=== PATIENT | male | born 1960 | race Caucasian/White ===

== ENCOUNTER 2021-02-07 06:52 | Inpatient (IN) | payer OTHER ==
[2021-02-07] MEDS ORDERED: Sodium Chloride 0.9% 10 ML Syringe FLUSH PRN (07:04)
[2021-02-07] MEDS ORDERED: Diltiazem 50 MG/10 ML SDV IVPUSH ONE (07:05)
--- NOTE | 2021-02-07 07:09 | EDM.PDOC ---
ED HPI GENERAL MEDICAL PROBLEM - General Chief Complaint: Cardiovascular Problem Stated Complaint: SOB -SENT BY CARDIAC REHAB Time Seen by Provider: 02/07/21 07:00 Source of Information: Reports: Patient History Limitations: Reports: No Limitations - History of Present Illness INITIAL COMMENTS - FREE TEXT/NARRATIVE: The patient presents from cardiac rehab for tachycardia and shortness of breath. He noticed last night he was short of breath. He went to cardiac rehab this morning and they sent him right over. His heart rate was in the 140s. He says this has never happened before. He has no history of A-fib. He recently had a PA and had a stent 3 weeks ago. That was done at [facility] in [place]. He also had an PA a couple years ago with a stent. He denies chest pain now. He has no fever, chills, cough, congestion, runny nose, abdominal pain, nausea or vomiting. He is on medicine for hypertension. Onset: Gradual Duration: Day(s): (last night) Severity: Moderate Improves with: Reports: None Worsens with: Reports: None Associated Symptoms: Reports: Shortness of Breath. Denies: Chest Pain, Cough, Fever/Chills, Headaches, Nausea/Vomiting - Related Data Allergies Allergy/AdvReac Type Severity Reaction Status Date / Time ticagrelor [From Brilinta] Allergy Severe Shortness Verified 02/07/21 07:12 of Breath empagliflozin Allergy Intermediate Hives Verified 02/07/21 10:40 [From Jardiance] amoxicillin [From Augmentin] AdvReac Mild Numbness Verified 02/07/21 10:40 clavulanic acid AdvReac Mild Numbness Verified 02/07/21 10:40 [From Augmentin] [id number] Reductase AdvReac Mild Muscle Verified 02/07/21 10:40 Inhibitor Aches Home Meds: Home Meds Aspirin [Adult Aspirin] 81 mg PO DAILY 05/03/18 [History] Lisinopril 40 mg PO DAILY 05/03/18 [History] Loratadine [Claritin] 10 mg PO DAILY PRN 05/03/18 [History] Multivit-Min/FA/Lycopen/Lutein [Centrum Silver Men Tablet] 1 tab PO DAILY 05/03/18 [History] Zolpidem Tartrate [Ambien] 10 mg PO BEDTIME PRN 05/03/18 [History] amLODIPine Besylate [Amlodipine Besylate] 10 mg PO DAILY 05/03/18 [History] metFORMIN HCl [Metformin HCl] 1,000 mg PO BID 05/03/18 [History] Clopidogrel [Plavix] 75 mg PO DAILY 12/19/18 [History] Dulaglutide [Trulicity] 1 injection SQ WEEKLY 02/07/21 [History] Isosorbide Mononitrate [Imdur] 30 mg PO DAILY 02/07/21 [History] Pravastatin [Pravachol] 40 mg PO BEDTIME 02/07/21 [History] carvediloL [Carvedilol] 3.125 mg PO BID 02/07/21 [History] Past Medical History HEENT History: Reports: Impaired Vision Cardiovascular History: Reports: Hypertension, PA Other Cardiovascular History: stress test reveal precvious PA Respiratory History: Reports: Sleep Apnea Genitourinary History: Reports: Renal Calculus AUDIO VISUAL AIDS DIRECTOR History: Reports: None Musculoskeletal History: Reports: Gout, Osteoarthritis Neurological History: Reports: None Psychiatric History: Reports: None Endocrine/Metabolic History: Reports: Diabetes, Type II Hematologic History: Reports: None Immunologic History: Reports: None Oncologic (Cancer) History: Reports: Prostate Dermatologic History: Reports: None - Past Surgical History HEENT Surgical History: Reports: Other (See Below), Oral Surgery, Tonsillectomy Social & Family History - Family History Family Medical History: No Pertinent Family History - Caffeine Use Caffeine Use: Reports: Soda - Living Situation & Occupation Living situation: Reports: , with Spouse 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 Denies: Cough Cardiovascular: Reports: Palpitations. Denies: Chest Pain Endocrine: Reports: No Symptoms GI/Abdominal: Reports: No Symptoms : Reports: No Symptoms ED EXAM, GENERAL - Physical Exam Exam: See Below Exam Limited By: No Limitations General Appearance: Alert, No Apparent Distress Ears: Normal External Exam Nose: Normal Inspection Head: Atraumatic, Normocephalic Neck: Normal Inspection Respiratory/Chest: No Respiratory Distress, Lungs Clear, Normal Breath Sounds Cardiovascular: No Edema, No Murmur, Tachycardia GI/Abdominal: Soft, Non-Tender, No Organomegaly, No Mass Back Exam: Normal Inspection Extremities: Normal Inspection #1 Interpretation EKG Date: 02/07/21 Time: 07:15 Rhythm: A-Fib Rate (Beats/Min): 135 [place]: Normal P-Wave: Absent QRS: RBBB ST-T: Normal QT: Normal #2 Interpretation EKG Date: 02/07/21 Time: 07:50 Rhythm: A-Fib Rate (Beats/Min): 107 [place]: Normal P-Wave: Absent QRS: RBBB ST-T: Normal QT: Normal Course - Vital Signs Last Recorded V/S: Last Vital Signs Temp 97.1 F 02/07/21 09:55 Pulse 105 H 02/07/21 09:55 Resp 20 02/07/21 09:55 BP 120/80 02/07/21 09:55 Pulse Ox 96 02/07/21 09:55 - Orders/Labs/Meds Orders: Active Orders 24 hr Category Date Time Status Cardiac Monitoring [RC] . DIRECTED Care 02/07/21 07:04 Active EKG Documentation Completion [RC] ASDIRECTED Care 02/07/21 07:47 Active EKG Documentation Completion [RC] STAT Care 02/07/21 07:04 Active Peripheral IV Care [RC] . DIRECTED Care 02/07/21 07:04 Active Diltiazem [Cardizem] 100 mg Med 02/07/21 07:15 Active Sodium Chloride 0.9% [Normal Saline] 100 ml IV TITRATE Sodium Chloride 0.9% [Saline Flush] Med 02/07/21 07:04 Active 10 ml FLUSH ASDIRECTED PRN Peripheral IV Insertion Adult [OM.PC] Stat Oth 02/07/21 07:04 Ordered EKG 12 Lead [EK] Stat Ther 02/07/21 07:47 Ordered Medication Orders Acetaminophen (Acetaminophen 325 Mg Tab) 650 mg PO Q4H PRN PRN Reason: Pain (Mild 1-3)/fever Apixaban (Apixaban 5 Mg Tab) 5 mg PO BID [facility] Aspirin (Aspirin 81 Mg Tab.Ec) 81 mg PO DAILY [facility] Carvedilol (Carvedilol 6.25 Mg Tab) 6.25 mg PO BID [facility] Clopidogrel Bisulfate (Clopidogrel 75 Mg Tab) 75 mg PO DAILY [facility] Diltiazem HCl 100 mg/ Sodium (Chloride) 100 mls @ 10 mls/hr IV TITRATE VEA; Protocol Last Titration: 02/07/21 08:14 Dose: 10 mg/hr, 10 mls/hr Documented by: Titration: 02/07/21 07:40 Dose: 5 mg/hr, 5 mls/hr Documented by: Admin: 02/07/21 07:36 Dose: 10 mg/hr, 10 mls/hr Documented by: SHARON Magnesium Sulfate 2 gm/ Premix 50 mls @ 25 mls/hr IV ONETIME ONE Stop: 02/07/21 12:59 Insulin Human Lispro (Insulin Lispro 100 Unit/Ml) 0 unit SUBCUT QIDACANDBED EVA; Protocol Multivitamins/Minerals/Vitamin C (Multivitamin Tab) 1 tab PO DAILY EVA Dulaglutide [ Trulicity] 0.75 Mg/0 .5 Ml Pen.Injctr Patient's Own Med 0 each SUBCUT Mo@0900 EV[facility] Pravastatin Sodium (Pravastatin 20 Mg Tab) 40 mg PO BEDTIME EVA Sodium Chloride (Sodium Chloride 0.9% 10 Ml Syringe) 10 ml FLUSH ASDIRECTED PRN PRN Reason: Keep Vein Open Last Admin: 02/07/21 07:36 Dose: 10 ml Documented by: SHARON Zolpidem Tartrate (Zolpidem 10 Mg Tab) 10 mg PO BEDTIME PRN PRN Reason: Insomnia Labs: Laboratory Tests 02/07/21 02/07/21 02/07/21 Range/Units 07:20 07:20 07:20 WBC 6.07 (4.23-9.07) K/mm3 RBC 5.16 (4.63-6.08) M/mm3 Hgb 14.8 (13.7-17.5) gm/dl Hct 44.2 (40.1-51.0) % MCV 85.7 (79.0-92.2) fl MCH 28.7 (25.7-32.2) pg MCHC 33.5 (32.2-35.5) g/dl RDW Std Deviation 43.1 (35.1-43.9) fL Plt Count 227 (163-337) K/mm3 MPV 9.3 L (9.4-12.3) fl Neut % (Auto) 65.6 (34.0-67.9) % Lymph % (Auto) 26.2 (21.8-53.1) % [place] % (Auto) 7.6 (5.3-12.2) % Eos % (Auto) 0.2 L (0.8-7.0) Baso % (Auto) 0.2 (0.1-1.2) % Neut # (Auto) 3.99 (1.78-5.38) K/mm3 Lymph # (Auto) 1.59 (1.32-3.57) K/mm3 [place] # (Auto) 0.46 (0.30-0.82) K/mm3 Eos # (Auto) 0.01 L (0.04-0.54) K/mm3 Baso # (Auto) 0.01 (0.01-0.08) K/mm3 Manual Slide Review Not Reportable Sodium 141 (136-145) mEq/L Potassium 4.1 (3.5-5.1) mEq/L Chloride 105 (98-107) mEq/L Carbon Dioxide 24 (21-32) mEq/L Anion Gap 16.1 H (5-15) BUN 17 (7-18) mg/dL Creatinine 1.0 (0.7-1.3) mg/dL Est Cr Clr Drug Dosing 90.19 mL/min Estimated GFR (MDRD) > 60 (>60) mL/min BUN/Creatinine Ratio 17.0 (14-18) Glucose 245 H (80-115) mg/dL Calcium 9.3 (8.5-10.1) mg/dL Magnesium 1.7 L (1.8-2.4) mg/dl Total Bilirubin 0.7 (0.2-1.0) mg/dL AST 16 (15-37) U/L ALT 31 (16-63) U/L Alkaline Phosphatase 84 (46-116) U/L Troponin I < 0.017 (0.00-0.056) ng/mL Total Protein 7.0 (6.4-8.2) g/dl Albumin 3.6 (3.4-5.0) g/dl Globulin 3.4 gm/dL Albumin/Globulin Ratio 1.1 (1-2) TSH 3rd Generation 1.934 (0.358-3.74) uIU/mL SARS-CoV-2 RNA (LENORE) (NEGATIVE) 02/07/21 Range/Units 07:25 WBC (4.23-9.07) K/mm3 RBC (4.63-6.08) M/mm3 Hgb (13.7-17.5) gm/dl Hct (40.1-51.0) % MCV (79.0-92.2) fl MCH (25.7-32.2) pg MCHC (32.2-35.5) g/dl RDW Std Deviation (35.1-43.9) fL Plt Count (163-337) K/mm3 MPV (9.4-12.3) fl Neut % (Auto) (34.0-67.9) % Lymph % (Auto) (21.8-53.1) % [place] % (Auto) (5.3-12.2) % Eos % (Auto) (0.8-7.0) Baso % (Auto) (0.1-1.2) % Neut # (Auto) (1.78-5.38) K/mm3 Lymph # (Auto) (1.32-3.57) K/mm3 [place] # (Auto) (0.30-0.82) K/mm3 Eos # (Auto) (0.04-0.54) K/mm3 Baso # (Auto) (0.01-0.08) K/mm3 Manual Slide Review Sodium (136-145) mEq/L Potassium (3.5-5.1) mEq/L Chloride (98-107) mEq/L Carbon Dioxide (21-32) mEq/L Anion Gap (5-15) BUN (7-18) mg/dL Creatinine (0.7-1.3) mg/dL Est Cr Clr Drug Dosing mL/min Estimated GFR (MDRD) (>60) mL/min BUN/Creatinine Ratio (14-18) Glucose (80-115) mg/dL Calcium (8.5-10.1) mg/dL Magnesium (1.8-2.4) mg/dl Total Bilirubin (0.2-1.0) mg/dL AST (15-37) U/L ALT (16-63) U/L Alkaline Phosphatase (46-116) U/L Troponin I (0.00-0.056) ng/mL Total Protein (6.4-8.2) g/dl Albumin (3.4-5.0) g/dl Globulin gm/dL Albumin/Globulin Ratio (1-2) TSH 3rd Generation (0.358-3.74) uIU/mL SARS-CoV-2 RNA (LENORE) Negative (NEGATIVE) Meds: Medications Generic Name Dose Route Start Last Admin Trade Name Freq PRN Reason Stop Dose Admin Acetaminophen 650 mg 02/07/21 10:36 Acetaminophen 325 Mg Tab PO Q4H PRN Pain (Mild 1-3)/fever Apixaban 5 mg 02/07/21 21:00 Apixaban 5 Mg Tab PO BID [facility] Aspirin 81 mg 02/08/21 09:00 Aspirin 81 Mg Tab.Ec PO DAILY [facility] Carvedilol 6.25 mg 02/07/21 11:00 Carvedilol 6.25 Mg Tab PO BID [facility] Clopidogrel Bisulfate 75 mg 02/07/21 11:00 Clopidogrel 75 Mg Tab PO DAILY [facility] Diltiazem HCl 100 mg/ Sodium 100 mls @ 10 mls/hr 02/07/21 07:15 02/07/21 08:14 Chloride IV 10 mg/hr TITRATE [facility] 10 mls/hr Titration Protocol 10 MG/HR Magnesium Sulfate 2 gm/ Premix 50 mls @ 25 mls/hr 02/07/21 11:00 IV 02/07/21 12:59 ONETIME ONE Insulin Human Lispro 0 unit 02/07/21 11:00 Insulin Lispro 100 Unit/Ml SUBCUT QIDACANDBED [facility] Protocol Multivitamins/Minerals/Vitamin C 1 tab 02/08/21 09:00 Multivitamin Tab PO DAILY [facility] Dulaglutide [ 0 each 02/07/21 10:30 Trulicity] 0.75 Mg/0 SUBCUT .5 Ml Pen.Injctr Mo@0900 [facility] Patient's Own Med Pravastatin Sodium 40 mg 02/07/21 21:00 Pravastatin 20 Mg Tab PO BEDTIME [facility] Sodium Chloride 10 ml 02/07/21 07:04 02/07/21 07:36 Sodium Chloride 0.9% 10 Ml Syringe FLUSH 10 ml ASDIRECTED PRN Administration Keep Vein Open Zolpidem Tartrate 10 mg 02/07/21 21:00 Zolpidem 10 Mg Tab PO BEDTIME PRN Insomnia Discontinued Medications Generic Name Dose Route Start Last Admin Trade Name Freq PRN Reason Stop Dose Admin Apixaban 5 mg 02/07/21 08:45 02/07/21 08:57 Apixaban 5 Mg Tab PO 02/07/21 08:46 5 mg ONETIME ONE Administration Diltiazem HCl 10 mg 02/07/21 07:05 02/07/21 07:31 Diltiazem 50 Mg/10 Ml Sdv IVPUSH 02/07/21 07:06 10 mg ONETIME ONE Administration Sodium Chloride 1,000 mls @ 1,000 mls/hr 02/07/21 07:47 02/07/21 07:53 Normal Saline IV 02/07/21 08:46 1,000 mls/hr ONETIME ONE Administration Sodium Chloride Confirm 02/07/21 07:49 02/07/21 07:54 Normal Saline Administered 02/07/21 07:50 Not Given Dose 1,000 mls @ as directed .ROUTE .[facility] - Re-Assessments/Exams Free Text/Narrative Re-Assessment/Exam: 02/07/21 07:09 I ordered an IV saline lock, EKG, CXR, labs, cardizem bolus and drip. 02/07/21 08:14 His EKG confirms my Atrial Fibrillation at a rate of 135. After being on the cardizem he did says he had some jaw tightness and he was lightheaded. I did a repeat EKG and his rat is better at 107. He is still in A-fib and no acute changes. His BP was in the low 100s. I did order a liter bolus. He did take aspirin this morning. His CBC looks good. His anion gap was slightly elevated at 16.1. His glucose was elevated at 245. He is diabetic and on metformin. His magnesium was a little low at 1.7. His troponin is negative. He is COVID 19 negative. I am waiting on his TSH and then I will call cardiology at [facility]. 02/07/21 08:23 His TSH is normal. His rate is better. He will need to be admitted. I have called [facility] in [place] and talked to the operations support representative dredge boat engineer Dr Babcock and she recommended admission here add eliquis 5mg 2 times per day and then switch to mono therapy within a week. She also recommended going down with the lisinopril 20mg and then go up with coreg 6.25. 02/07/21 08:[address] Contreras and he agreed to the admission. Departure - Departure Time of Disposition: 09:00 Disposition: DC/Tfer to Acute Hospital 02 Condition: Fair Clinical Impression: Atrial fibrillation with RVR Type II diabetes mellitus Qualifiers: Diabetes mellitus jail insulin use: without ocean transportation intermediary use Diabetes mellitus complication status: without complication Qualified Code(s): E11.9 - Type 2 diabetes mellitus without complications Coronary artery disease Qualifiers: Coronary Disease-Associated Artery/Lesion type: unspecified vessel or lesion type [place] vs. transplanted heart: [place] heart Associated angina: unspecified whether angina present Qualified Code(s): I25.10 - Atherosclerotic heart disease of [place] coronary artery without angina pectoris Sepsis Event Note (ED) - Focused Exam Vital Signs: Vital Signs Temp Pulse Resp BP Pulse Ox 02/07/21 09:00 17 119/63 97 02/07/21 08:00 16 97/69 97 02/07/21 07:03 96.9 F 144 H 17 105/68 96 - My Orders Last 24 Hours: My Active Orders 02/07/21 07:04 Cardiac Monitoring [RC] . DIRECTED EKG Documentation Completion [RC] STAT Peripheral IV Care [RC] . DIRECTED Sodium Chloride 0.9% [Saline Flush] 10 ml FLUSH ASDIRECTED PRN Peripheral IV Insertion Adult [OM.PC] Stat 02/07/21 07:15 Diltiazem [Cardizem] 100 mg Sodium Chloride 0.9% [Normal Saline] 100 ml IV TITRATE 02/07/21 07:47 EKG Documentation Completion [RC] ASDIRECTED EKG 12 Lead [EK] Stat - Assessment/Plan Last 24 Hours: My Active Orders 02/07/21 07:04 Cardiac Monitoring [RC] . DIRECTED EKG Documentation Completion [RC] STAT Peripheral IV Care [RC] . DIRECTED Sodium Chloride 0.9% [Saline Flush] 10 ml FLUSH ASDIRECTED PRN Peripheral IV Insertion Adult [OM.PC] Stat 02/07/21 07:15 Diltiazem [Cardizem] 100 mg Sodium Chloride 0.9% [Normal Saline] 100 ml IV TITRATE 02/07/21 07:47 EKG Documentation Completion [RC] ASDIRECTED EKG 12 Lead [EK] Stat
[2021-02-07] MEDS ORDERED: Diltiazem 100 MG in Sodium Chloride 0.9% 100 ML IV SCH (07:15)
[2021-02-07] MEDS ORDERED: Sodium Chloride 0.9% 1,000 ML IV ONE (07:47)
[2021-02-07] MEDS ORDERED: Sodium Chloride 0.9% 1,000 ML ONE (07:49)
[2021-02-07] MEDS ORDERED: Apixaban 5 MG Tab PO ONE (08:45)
--- NOTE | 2021-02-07 08:47 | CR ---
Chest: Portable view of the chest was obtained. Comparison: No prior chest is available. Heart size and mediastinum are normal. Lungs are clear with no acute parenchymal change. Bony structures show nothing acute. Slight degenerative spurring is noted within the spine. Impression: 1. Nothing acute is appreciated on portable chest x-ray. Diagnostic code #1
[2021-02-07] MEDS ORDERED: DULAGLUTIDE 0.75 MG/0.5 ML SUBCUT SCH (10:30)
[2021-02-07] MEDS ORDERED: Acetaminophen 325 MG Tab PO PRN (10:36)
--- NOTE | 2021-02-07 10:41 | PCM.HP.2 ---
H&P History of Present Illness - General Date of Service: 02/07/21 Admit Problem/Dx: Admission Diagnosis/Problem Admission Diagnosis/Problem Atrial fibrillation - History of Present Illness Initial Comments - Free Text/Narative: 60-year-old male with history of coronary artery disease with recent stent placement after a positive stress test last month and history of VA 2 years ago presents to the emergency department after being seen at cardiac rehab. Patient states that he has had increasing shortness of breath since last night and has not felt right for the last couple of days. In cardiac rehab he was found to be tachycardic with his heart rate in the 140s. He was then sent to the emergency department. Patient has no history of atrial fibrillation. Patient denies any nausea, vomiting, chest pain, palpitations, or lower extremity edema. He is on Coreg for his hypertension and coronary artery disease. Emergency room provider did contact his fleet coordinator, Dr. Babcock, recommended increasing his Coreg from 3.125 to 6.25 mg And wean off Cardizem as rate controls. Also recommended adding Eliquis to his anticoagulation profile which includes Plavix and aspirin. She did not recommend stopping either. Finally, she recommended going down on the lisinopril to 20 mg daily. - Related Data Allergies/Adverse Reactions: Allergies Allergy/AdvReac Type Severity Reaction Status Date / Time ticagrelor [From Brilinta] Allergy Severe Shortness Verified 02/07/21 07:12 of Breath empagliflozin Allergy Intermediate Hives Verified 02/07/21 10:40 [From Jardiance] amoxicillin [From Augmentin] AdvReac Mild Numbness Verified 02/07/21 10:40 clavulanic acid AdvReac Mild Numbness Verified 02/07/21 10:40 [From Augmentin] [id number] Reductase AdvReac Mild Muscle Verified 02/07/21 10:40 Inhibitor Aches Home Medications: Home Meds Aspirin [Adult Aspirin] 81 mg PO DAILY 05/03/18 [History] Lisinopril 40 mg PO DAILY 05/03/18 [History] Loratadine [Claritin] 10 mg PO DAILY PRN 05/03/18 [History] Multivit-Min/FA/Lycopen/Lutein [Centrum Silver Men Tablet] 1 tab PO DAILY 05/03/18 [History] Zolpidem Tartrate [Ambien] 10 mg PO BEDTIME PRN 05/03/18 [History] amLODIPine Besylate [Amlodipine Besylate] 10 mg PO DAILY 05/03/18 [History] metFORMIN HCl [Metformin HCl] 1,000 mg PO BID 05/03/18 [History] Clopidogrel [Plavix] 75 mg PO DAILY 12/19/18 [History] Dulaglutide [Trulicity] 1 injection SQ WEEKLY 02/07/21 [History] Isosorbide Mononitrate [Imdur] 30 mg PO DAILY 02/07/21 [History] Pravastatin [Pravachol] 40 mg PO BEDTIME 02/07/21 [History] carvediloL [Carvedilol] 3.125 mg PO BID 02/07/21 [History] Past Medical History HEENT History: Reports: Impaired Vision Cardiovascular History: Reports: Hypertension, VA, Stents Other Cardiovascular History: stress test reveal precvious VA Respiratory History: Reports: Sleep Apnea Genitourinary History: Reports: Renal Calculus BALL WARPER TENDER History: Reports: None Musculoskeletal History: Reports: Gout, Osteoarthritis Neurological History: Reports: None Psychiatric History: Reports: None Endocrine/Metabolic History: Reports: Diabetes, Type II Hematologic History: Reports: Anticoagulation Therapy Immunologic History: Reports: None Oncologic (Cancer) History: Reports: Prostate Dermatologic History: Reports: None - Infectious Disease History Infectious Disease History: Reports: Chicken Pox - Past Surgical History HEENT Surgical History: Reports: Other (See Below), Oral Surgery, Tonsillectomy Respiratory Surgical History: Reports: None GI Surgical History: Reports: Bariatric Procedure, Colonoscopy Male Surgical History: Reports: Lithotripsy ([facility]), Prostate Biopsy, Prostatectomy Neurological Surgical History: Reports: None Musculoskeletal Surgical History: Reports: Carpal Tunnel, Hip Replacement Social & Family History - Family History Family Medical History: No Pertinent Family History - Tobacco Use Tobacco Use Status *Q: Never Tobacco User - Caffeine Use Caffeine Use: Reports: None - Recreational Drug Use Recreational Drug Use: No - Living Situation & Occupation Living situation: Reports: , with Spouse 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 Exam - Exam Exam: See Below - Vital Signs Vital Signs: Last Vital Signs Temp 96.9 F 02/07/21 07:03 Pulse 144 H 02/07/21 07:03 Resp 20 02/07/21 09:30 BP 117/73 02/07/21 09:30 Pulse Ox 96 02/07/21 09:30 Weight: 269 lb - Exam Quality Assessment: No: Supplemental Oxygen General: Alert, Oriented, 4 HEENT: Conjunctiva Clear, Hearing Intact, Mucosa Moist & [place], Normal Nasal Septum, Posterior Pharynx Clear Neck: Supple, Trachea Midline, 2 Lungs: Clear to Auscultation, Normal Respiratory Effort Cardiovascular: Irregular Rhythm, Tachycardia GI/Abdominal Exam: Normal Bowel Sounds, Soft, Non-Tender, No Organomegaly, No Distention, No Abnormal Bruit Extremities: Normal Inspection, Normal Range of Motion, Non-Tender, No Pedal Edema, Normal Capillary Refill Skin: Warm, Dry, Intact Neuro Extensive - Mental Status: Alert, Oriented x3, Normal Mood/Affect, Normal Cognition, Memory Intact Psychiatric: Alert, Normal Affect, Normal Mood - Patient Data Lab Results Last 24 hrs: Laboratory Results - last 24 hr 02/07/21 02/07/21 02/07/21 Range/Units 07:20 07:20 07:20 WBC 6.07 (4.23-9.07) K/mm3 RBC 5.16 (4.63-6.08) M/mm3 Hgb 14.8 (13.7-17.5) gm/dl Hct 44.2 (40.1-51.0) % MCV 85.7 (79.0-92.2) fl MCH 28.7 (25.7-32.2) pg MCHC 33.5 (32.2-35.5) g/dl RDW Std Deviation 43.1 (35.1-43.9) fL Plt Count 227 (163-337) K/mm3 MPV 9.3 L (9.4-12.3) fl Neut % (Auto) 65.6 (34.0-67.9) % Lymph % (Auto) 26.2 (21.8-53.1) % Morgan % (Auto) 7.6 (5.3-12.2) % Eos % (Auto) 0.2 L (0.8-7.0) Baso % (Auto) 0.2 (0.1-1.2) % Neut # (Auto) 3.99 (1.78-5.38) K/mm3 Lymph # (Auto) 1.59 (1.32-3.57) K/mm3 Morgan # (Auto) 0.46 (0.30-0.82) K/mm3 Eos # (Auto) 0.01 L (0.04-0.54) K/mm3 Baso # (Auto) 0.01 (0.01-0.08) K/mm3 Manual Slide Review Not Reportable Sodium 141 (136-145) mEq/L Potassium 4.1 (3.5-5.1) mEq/L Chloride 105 (98-107) mEq/L Carbon Dioxide 24 (21-32) mEq/L Anion Gap 16.1 H (5-15) BUN 17 (7-18) mg/dL Creatinine 1.0 (0.7-1.3) mg/dL Est Cr Clr Drug Dosing 90.19 mL/min Estimated GFR (MDRD) > 60 (>60) mL/min BUN/Creatinine Ratio 17.0 (14-18) Glucose 245 H (80-115) mg/dL Calcium 9.3 (8.5-10.1) mg/dL Magnesium 1.7 L (1.8-2.4) mg/dl Total Bilirubin 0.7 (0.2-1.0) mg/dL AST 16 (15-37) U/L ALT 31 (16-63) U/L Alkaline Phosphatase 84 (46-116) U/L Troponin I < 0.017 (0.00-0.056) ng/mL Total Protein 7.0 (6.4-8.2) g/dl Albumin 3.6 (3.4-5.0) g/dl Globulin 3.4 gm/dL Albumin/Globulin Ratio 1.1 (1-2) TSH 3rd Generation 1.934 (0.358-3.74) uIU/mL SARS-CoV-2 RNA (LENORE) (NEGATIVE) 02/07/21 Range/Units 07:25 WBC (4.23-9.07) K/mm3 RBC (4.63-6.08) M/mm3 Hgb (13.7-17.5) gm/dl Hct (40.1-51.0) % MCV (79.0-92.2) fl MCH (25.7-32.2) pg MCHC (32.2-35.5) g/dl RDW Std Deviation (35.1-43.9) fL Plt Count (163-337) K/mm3 MPV (9.4-12.3) fl Neut % (Auto) (34.0-67.9) % Lymph % (Auto) (21.8-53.1) % Morgan % (Auto) (5.3-12.2) % Eos % (Auto) (0.8-7.0) Baso % (Auto) (0.1-1.2) % Neut # (Auto) (1.78-5.38) K/mm3 Lymph # (Auto) (1.32-3.57) K/mm3 Morgan # (Auto) (0.30-0.82) K/mm3 Eos # (Auto) (0.04-0.54) K/mm3 Baso # (Auto) (0.01-0.08) K/mm3 Manual Slide Review Sodium (136-145) mEq/L Potassium (3.5-5.1) mEq/L Chloride (98-107) mEq/L Carbon Dioxide (21-32) mEq/L Anion Gap (5-15) BUN (7-18) mg/dL Creatinine (0.7-1.3) mg/dL Est Cr Clr Drug Dosing mL/min Estimated GFR (MDRD) (>60) mL/min BUN/Creatinine Ratio (14-18) Glucose (80-115) mg/dL Calcium (8.5-10.1) mg/dL Magnesium (1.8-2.4) mg/dl Total Bilirubin (0.2-1.0) mg/dL AST (15-37) U/L ALT (16-63) U/L Alkaline Phosphatase (46-116) U/L Troponin I (0.00-0.056) ng/mL Total Protein (6.4-8.2) g/dl Albumin (3.4-5.0) g/dl Globulin gm/dL Albumin/Globulin Ratio (1-2) TSH 3rd Generation (0.358-3.74) uIU/mL SARS-CoV-2 RNA (LENORE) Negative (NEGATIVE) Result Diagrams: 02/07/21 07:20 02/07/21 07:20 Sepsis Event Note - Evaluation Sepsis Screening Result: No Definite Risk - Focused Exam Vital Signs: Vital Signs Temp Pulse Resp BP Pulse Ox 02/07/21 09:30 20 117/73 96 02/07/21 09:00 17 119/63 97 02/07/21 08:00 16 97/69 97 02/07/21 07:03 96.9 F 144 H 17 105/68 96 - Problem List (1) Atrial fibrillation with RVR SNOMED Code(s): 655607814606899 ICD Code: I48.91 - UNSPECIFIED ATRIAL FIBRILLATION Status: Acute Current Visit: Yes (2) Coronary artery disease SNOMED Code(s): 33503154 ICD Code: I25.10 - ATHSCL HEART DISEASE OF [place] CORONARY ARTERY W/O ANG PCTRS Status: Acute Current Visit: Yes Qualifiers: Coronary Disease-Associated Artery/Lesion type: unspecified vessel or lesion type [place] vs. transplanted heart: [place] heart Associated angina: unspecified whether angina present Qualified Code(s): I25.10 - Atherosclerotic heart disease of [place] coronary artery without angina pectoris (3) Type II diabetes mellitus SNOMED Code(s): 08802860 ICD Code: E11.9 - TYPE 2 DIABETES MELLITUS WITHOUT COMPLICATIONS Status: Acute Priority: Medium Current Visit: Yes Qualifiers: Diabetes mellitus termite treater insulin use: without detention use Diabetes mellitus complication status: without complication Qualified Code(s): E11.9 - Type 2 diabetes mellitus without complications (4) HTN (hypertension) SNOMED Code(s): 41267543 ICD Code: I10 - ESSENTIAL (PRIMARY) HYPERTENSION Status: Acute Priority: Medium Current Visit: No Qualifiers: Hypertension type: unspecified Qualified Code(s): I10 - Essential (primary) hypertension Problem List Initiated/Reviewed/Updated: Yes Orders Last 24hrs: Active Orders 24 hr Category Date Time Status Patient Status [ADT] Routine ADT 02/07/21 09:12 Active Blood Glucose Check, Bedside [RC] WITHMEALSANDBED Care 02/07/21 10:39 Ordered Cardiac Monitoring [RC] . DIRECTED Care 02/07/21 07:04 Active EKG Documentation Completion [RC] ASDIRECTED Care 02/07/21 07:47 Active EKG Documentation Completion [RC] STAT Care 02/07/21 07:04 Active Oxygen Therapy [RC] PRN Care 02/07/21 10:36 Ordered Peripheral IV Care [RC] . DIRECTED Care 02/07/21 07:04 Active Up ad Leia [RC] ASDIRECTED Care 02/07/21 10:36 Ordered VTE/DVT Education [RC] PER UNIT ROUTINE Care 02/07/21 10:36 Ordered Vital Signs [RC] Q4H Care 02/07/21 10:36 Ordered Consistent Carbohydrate Diet [DIET] Diet 02/07/21 Lunch Ordered Heart Healthy Diet [DIET] Diet 02/07/21 Lunch Ordered Acetaminophen [TylenoL] Med 02/07/21 10:36 Ordered 650 mg PO Q4H PRN Apixaban [Eliquis] Med 02/07/21 21:00 Ordered 5 mg PO BID Aspirin [Halfprin] Med 02/08/21 09:00 Ordered 81 mg PO DAILY Clopidogrel [Plavix] Med 02/07/21 10:45 Ordered 75 mg PO DAILY Diltiazem [Cardizem] 100 mg Med 02/07/21 07:15 Active Sodium Chloride 0.9% [Normal Saline] 100 ml IV TITRATE Dulaglutide [Trulicity] Med 02/07/21 10:30 Ordered 1 injection SQ WEEKLY Insulin Lispro [HumaLOG] Med 02/07/21 11:00 Ordered See Protocol SUBCUT QIDACANDBED Magnesium Sulfate/Water [Magnesium Sulfate in Water 2 Med 02/07/21 10:30 Ordered GM/50 ML] 2 gm Premix Bag 1 bag IV ONETIME Multivit-Min/FA/Lycopen/Lutein [Centrum Silver Men Med 02/08/21 09:00 Ordered Tablet] 1 tab PO DAILY Pravastatin Med 02/07/21 21:00 Ordered 40 mg PO BEDTIME Sodium Chloride 0.9% [Saline Flush] Med 02/07/21 07:04 Active 10 ml FLUSH ASDIRECTED PRN Zolpidem [Ambien] Med 02/07/21 10:30 Ordered 10 mg PO BEDTIME PRN carvediloL [Coreg] Med 02/07/21 10:45 Ordered 6.25 mg PO BID Peripheral IV Insertion Adult [OM.PC] Stat Oth 02/07/21 07:04 Ordered Resuscitation Status Routine Resus Stat 02/07/21 10:36 Ordered EKG 12 Lead [EK] Stat Ther 02/07/21 07:47 Ordered Medication Orders Acetaminophen (Acetaminophen 325 Mg Tab) 650 mg PO Q4H PRN PRN Reason: Pain (Mild 1-3)/fever Apixaban (Apixaban 5 Mg Tab) 5 mg PO BID [facility] Aspirin (Aspirin 81 Mg Tab.Ec) 81 mg PO DAILY [facility]A Carvedilol (Carvedilol 6.25 Mg Tab) 6.25 mg PO BID [facility] Clopidogrel Bisulfate (Clopidogrel 75 Mg Tab) 75 mg PO DAILY [facility] Diltiazem HCl 100 mg/ Sodium (Chloride) 100 mls @ 10 mls/hr IV TITRATE [facility]A; Protocol Last Titration: 02/07/21 08:14 Dose: 10 mg/hr, 10 mls/hr Documented by: Titration: 02/07/21 07:40 Dose: 5 mg/hr, 5 mls/hr Documented by: Admin: 02/07/21 07:36 Dose: 10 mg/hr, 10 mls/hr Documented by: SHARON Magnesium Sulfate 2 gm/ Premix 50 mls @ 25 mls/hr IV ONETIME ONE Stop: 02/07/21 12:29 Insulin Human Lispro (Insulin Lispro 100 Unit/Ml) 0 unit SUBCUT QIDACANDBED [facility]; Protocol Non-Formulary Medication (Dulaglutide [Trulicity]) 1 injection SQ WEEKLY [facility] Non-Formulary Medication (Multivit-Min/Fa/Lycopen/Lutein [Centrum Silver Men Tablet]) 1 tab PO DAILY [facility] Non-Formulary Medication (Pravastatin) 40 mg PO BEDTIME [facility] Sodium Chloride (Sodium Chloride 0.9% 10 Ml Syringe) 10 ml FLUSH ASDIRECTED PRN PRN Reason: Keep Vein Open Last Admin: 02/07/21 07:36 Dose: 10 ml Documented by: SHARON Zolpidem Tartrate (Zolpidem 10 Mg Tab) 10 mg PO BEDTIME PRN PRN Reason: Insomnia Assessment/Plan Comment:: Assessment 60-year-old male with history of stent placement last month, VA 2 years ago with a stent placement, and diabetes presents to the emergency department after being seen at cardiac rehab in atrial fibrillation with rapid ventricular response. Atrial fibrillation with rapid ventricular response Coronary artery disease recent stent placement and history of VA * Symptoms started approximately patient developed shortness of breath last night but started having symptoms 1 to 2 days ago. * Cardiology was consulted and they recommended doubling his Coreg and decreasing his lisinopril. * Patient was started on a Cardizem drip in the emergency department with rates around 100. * Troponin and TSH negative * No chest pain, but does have shortness of breath Plan * Admit to ICU * Cardizem drip * Increase Coreg to 6.25 mg twice daily * Decrease lisinopril to 20 mg daily, but for today will hold lisinopril to give us more room on his blood pressure. * Hold Imdur for today and restart when blood pressure and rate is controlled * Start Eliquis 5 mg twice daily and continue Plavix and aspirin per cardiology Diabetes mellitus * Blood sugar elevated over 200 in the emergency department * Patient is due for his Trulicity * He reports hemoglobin A1c is in the low 6 Plan * Continue Trulicity * Hold Metformin * Sliding scale insulin with blood sugars 4 times daily CODE STATUS: Full code VTE prophylaxis with Eliquis - Mortality Measure Prognosis:: Good
[2021-02-07] MEDS ORDERED: Magnesium Sulfate/Water 2 GM in Premix Bag 1 BAG IV ONE (11:00)
[2021-02-07] MEDS: Carvedilol 6.25 MG Tab PO SCH ×2 (12:01→14:20)
[2021-02-07] MEDS: Clopidogrel 75 MG Tab PO SCH ×2 (12:02→14:20)
[2021-02-07] MEDS ORDERED: Carvedilol 3.125 MG Tab PO ONE (12:15)
--- NOTE | 2021-02-07 19:33 | PCM.DCSUM1 ---
Discharge Summary - Hospital Course HPI Initial Comments: 60-year-old male with history of coronary artery disease with recent stent placement after a positive stress test last month and history of [place] 2 years ago presents to the emergency department after being seen at cardiac rehab. Patient states that he has had increasing shortness of breath since last night and has not felt right for the last couple of days. In cardiac rehab he was found to be tachycardic with his heart rate in the 140s. He was then sent to the emergency department. Patient has no history of atrial fibrillation. Patient denies any nausea, vomiting, chest pain, palpitations, or lower extremity edema. He is on Coreg for his hypertension and coronary artery disease. Emergency room provider did contact his manager bench, Dr. Babcock, recommended increasing his Coreg from 3.125 to 6.25 mg And wean off Cardizem as rate controls. Also recommended adding Eliquis to his anticoagulation profile which includes Plavix and aspirin. She did not recommend stopping either. Finally, she recommended going down on the lisinopril to 20 mg daily. Assessment 60-year-old male with history of stent placement last month, [place] 2 years ago with a stent placement, and diabetes presents to the emergency department after being seen at cardiac rehab in atrial fibrillation with rapid ventricular response. Atrial fibrillation with rapid ventricular response Coronary artery disease recent stent placement and history of [place] * Symptoms started approximately patient developed shortness of breath last night but started having symptoms 1 to 2 days ago. * Cardiology was consulted and they recommended doubling his Coreg and decreasing his lisinopril. * Patient was started on a Cardizem drip in the emergency department with rates around 100. * Troponin and TSH negative * No chest pain, but does have shortness of breath Plan * Admit to ICU * Cardizem drip * Increase Coreg to 6.25 mg twice daily * Decrease lisinopril to 20 mg daily, but for today will hold lisinopril to give us more room on his blood pressure. * Hold Imdur for today and restart when blood pressure and rate is controlled * Start Eliquis 5 mg twice daily and continue Plavix and aspirin per cardiology Diabetes mellitus * Blood sugar elevated over 200 in the emergency department * Patient is due for his Trulicity * He reports hemoglobin A1c is in the low 6 Plan * Continue Trulicity * Hold Metformin * Sliding scale insulin with blood sugars 4 times daily CODE STATUS: Full code VTE prophylaxis with Eliquis - Mortality Measure Prognosis:: Good Diagnosis: Stroke: No - Discharge Data Discharge Date: 02/07/21 Discharge Disposition: Home, Self-Care 01 Condition: Good - Referral to Home Health Primary Care Physician: Brady Hartley MD - Discharge Diagnosis/Problem(s) (1) Atrial fibrillation with RVR SNOMED Code(s): 150818028706031 ICD Code: I48.91 - UNSPECIFIED ATRIAL FIBRILLATION Status: Acute Current Visit: Yes (2) Coronary artery disease SNOMED Code(s): 33317886 ICD Code: I25.10 - ATHSCL HEART DISEASE OF [place] CORONARY ARTERY W/O ANG PCTRS Status: Acute Current Visit: Yes Qualifiers: Coronary Disease-Associated Artery/Lesion type: unspecified vessel or lesion type [place] vs. transplanted heart: [place] heart Associated angina: unspecified whether angina present Qualified Code(s): I25.10 - Atherosclerotic heart disease of [place] coronary artery without angina pectoris (3) Type II diabetes mellitus SNOMED Code(s): 29211855 ICD Code: E11.9 - TYPE 2 DIABETES MELLITUS WITHOUT COMPLICATIONS Status: Acute Priority: Medium Current Visit: Yes Qualifiers: Diabetes mellitus termite treater insulin use: without nursing home use Diabetes mellitus complication status: without complication Qualified Code(s): E11.9 - Type 2 diabetes mellitus without complications (4) HTN (hypertension) SNOMED Code(s): 19161631 ICD Code: I10 - ESSENTIAL (PRIMARY) HYPERTENSION Status: Acute Priority: Medium Current Visit: No Qualifiers: Hypertension type: unspecified Qualified Code(s): I10 - Essential (primary) hypertension - Patient Summary/Data Hospital Course: Patient was admitted and put on a Cardizem drip. We increased his carvedilol to 6.25 and after the second 3.125 dose of the morning he converted to normal sinus rhythm. Patient stated normal sinus rhythm for the next 6 hours. He was started on Eliquis 5 mg twice daily and we decreased his lisinopril from 40-20.. Patient will follow up with his primary care provider and cardiology. - Patient Instructions Diet: Heart Healthy Diet, Diabetic Diet Driving: May Drive Today, Do Not Drive Showering/Bathing: May Shower Other/Special Instructions: Follow-up with cardiology and your primary care provider in the next week - Discharge Plan *PRESCRIPTION DRUG MONITORING PROGRAM REVIEWED*: No *COPY OF PRESCRIPTION DRUG MONITORING REPORT IN PATIENT KENIA: No Prescriptions/Med Rec: carvediloL [Coreg] 6.25 mg PO BID #30 tablet Apixaban [Eliquis] 5 mg PO BID #60 tablet lisinopriL [Lisinopril] 20 mg PO DAILY #30 tablet Home Medications: Home Meds Aspirin [Adult Aspirin] 81 mg PO DAILY 05/03/18 [History] Loratadine [Claritin] 10 mg PO DAILY PRN 05/03/18 [History] Multivit-Min/FA/Lycopen/Lutein [Centrum Silver Men Tablet] 1 tab PO DAILY 05/03/18 [History] Zolpidem Tartrate [Ambien] 10 mg PO BEDTIME PRN 05/03/18 [History] amLODIPine Besylate [Amlodipine Besylate] 10 mg PO DAILY 05/03/18 [History] metFORMIN HCl [Metformin HCl] 1,000 mg PO BID 05/03/18 [History] Clopidogrel [Plavix] 75 mg PO DAILY 12/19/18 [History] Apixaban [Eliquis] 5 mg PO BID #60 tablet 02/07/21 [Rx] Dulaglutide [Trulicity] 1 injection SQ WEEKLY 02/07/21 [History] Isosorbide Mononitrate [Imdur] 30 mg PO DAILY 02/07/21 [History] Pravastatin [Pravachol] 40 mg PO BEDTIME 02/07/21 [History] carvediloL [Coreg] 6.25 mg PO BID #30 tablet 02/07/21 [Rx] lisinopriL [Lisinopril] 20 mg PO DAILY #30 tablet 02/07/21 [Rx] Forms: ED Department Discharge Referrals: Brady Hartley MD [Primary Care Provider] - - Discharge Summary/Plan Comment DC Time >30 min.: No - General Info Date of Service: 02/07/21 Admission Dx/Problem (Free Text: Admission Diagnosis/Problem Admission Diagnosis/Problem Atrial fibrillation Subjective Update: Denies any symptoms. No chest pain, shortness of breath, palpitations. Functional Status: Reports: Pain Controlled - Review of Systems General: Reports: No Symptoms HEENT: Reports: No Symptoms Pulmonary: Reports: No Symptoms Cardiovascular: Reports: No Symptoms Gastrointestinal: Reports: No Symptoms Musculoskeletal: Reports: No Symptoms - Patient Data Vitals - Most Recent: Last Vital Signs Temp 97.2 F 02/07/21 14:00 Pulse 66 02/07/21 14:00 Resp 20 02/07/21 14:00 BP 137/90 02/07/21 14:00 Pulse Ox 99 02/07/21 14:00 Weight - Most Recent: 269 lb 9.6 oz I&O - Last 24 hours: Intake & Output 02/07/21 02/07/21 02/07/21 06:59 14:59 22:59 Intake Total 320 Balance 320 Lab Results - Last 24 hrs: Laboratory Results - last 24 hr 02/07/21 02/07/21 02/07/21 Range/Units 07:20 07:20 07:20 WBC 6.07 (4.23-9.07) K/mm3 RBC 5.16 (4.63-6.08) M/mm3 Hgb 14.8 (13.7-17.5) gm/dl Hct 44.2 (40.1-51.0) % MCV 85.7 (79.0-92.2) fl MCH 28.7 (25.7-32.2) pg MCHC 33.5 (32.2-35.5) g/dl RDW Std Deviation 43.1 (35.1-43.9) fL Plt Count 227 (163-337) K/mm3 MPV 9.3 L (9.4-12.3) fl Neut % (Auto) 65.6 (34.0-67.9) % Lymph % (Auto) 26.2 (21.8-53.1) % [place] % (Auto) 7.6 (5.3-12.2) % Eos % (Auto) 0.2 L (0.8-7.0) Baso % (Auto) 0.2 (0.1-1.2) % Neut # (Auto) 3.99 (1.78-5.38) K/mm3 Lymph # (Auto) 1.59 (1.32-3.57) K/mm3 [place] # (Auto) 0.46 (0.30-0.82) K/mm3 Eos # (Auto) 0.01 L (0.04-0.54) K/mm3 Baso # (Auto) 0.01 (0.01-0.08) K/mm3 Manual Slide Review Not Reportable Sodium 141 (136-145) mEq/L Potassium 4.1 (3.5-5.1) mEq/L Chloride 105 (98-107) mEq/L Carbon Dioxide 24 (21-32) mEq/L Anion Gap 16.1 H (5-15) BUN 17 (7-18) mg/dL Creatinine 1.0 (0.7-1.3) mg/dL Est Cr Clr Drug Dosing 90.19 mL/min Estimated GFR (MDRD) > 60 (>60) mL/min BUN/Creatinine Ratio 17.0 (14-18) Glucose 245 H (80-115) mg/dL POC Glucose (80-115) mg/dL Calcium 9.3 (8.5-10.1) mg/dL Magnesium 1.7 L (1.8-2.4) mg/dl Total Bilirubin 0.7 (0.2-1.0) mg/dL AST 16 (15-37) U/L ALT 31 (16-63) U/L Alkaline Phosphatase 84 (46-116) U/L Troponin I < 0.017 (0.00-0.056) ng/mL Total Protein 7.0 (6.4-8.2) g/dl Albumin 3.6 (3.4-5.0) g/dl Globulin 3.4 gm/dL Albumin/Globulin Ratio 1.1 (1-2) TSH 3rd Generation 1.934 (0.358-3.74) uIU/mL SARS-CoV-2 RNA (LENORE) (NEGATIVE) 02/07/21 02/07/21 Range/Units 07:25 13:55 WBC (4.23-9.07) K/mm3 RBC (4.63-6.08) M/mm3 Hgb (13.7-17.5) gm/dl Hct (40.1-51.0) % MCV (79.0-92.2) fl MCH (25.7-32.2) pg MCHC (32.2-35.5) g/dl RDW Std Deviation (35.1-43.9) fL Plt Count (163-337) K/mm3 MPV (9.4-12.3) fl Neut % (Auto) (34.0-67.9) % Lymph % (Auto) (21.8-53.1) % [place] % (Auto) (5.3-12.2) % Eos % (Auto) (0.8-7.0) Baso % (Auto) (0.1-1.2) % Neut # (Auto) (1.78-5.38) K/mm3 Lymph # (Auto) (1.32-3.57) K/mm3 [place] # (Auto) (0.30-0.82) K/mm3 Eos # (Auto) (0.04-0.54) K/mm3 Baso # (Auto) (0.01-0.08) K/mm3 Manual Slide Review Sodium (136-145) mEq/L Potassium (3.5-5.1) mEq/L Chloride (98-107) mEq/L Carbon Dioxide (21-32) mEq/L Anion Gap (5-15) BUN (7-18) mg/dL Creatinine (0.7-1.3) mg/dL Est Cr Clr Drug Dosing mL/min Estimated GFR (MDRD) (>60) mL/min BUN/Creatinine Ratio (14-18) Glucose (80-115) mg/dL POC Glucose 146 H (80-115) mg/dL Calcium (8.5-10.1) mg/dL Magnesium (1.8-2.4) mg/dl Total Bilirubin (0.2-1.0) mg/dL AST (15-37) U/L ALT (16-63) U/L Alkaline Phosphatase (46-116) U/L Troponin I (0.00-0.056) ng/mL Total Protein (6.4-8.2) g/dl Albumin (3.4-5.0) g/dl Globulin gm/dL Albumin/Globulin Ratio (1-2) TSH 3rd Generation (0.358-3.74) uIU/mL SARS-CoV-2 RNA ([place]) Negative (NEGATIVE) Med Orders - Current: Current Medications Acetaminophen (Acetaminophen 325 Mg Tab) 650 mg PO Q4H PRN PRN Reason: Pain (Mild 1-3)/fever Last Admin: 02/07/21 14:03 Dose: 650 mg Documented by: Apixaban (Apixaban 5 Mg Tab) 5 mg PO BID [facility]A Aspirin (Aspirin 81 Mg Tab.Ec) 81 mg PO DAILY [facility]A Carvedilol (Carvedilol 6.25 Mg Tab) 6.25 mg PO BID [facility] Last Admin: 02/07/21 14:20 Dose: Not Given Documented by: Clopidogrel Bisulfate (Clopidogrel 75 Mg Tab) 75 mg PO DAILY [facility] [place] Last Admin: 02/07/21 14:20 Dose: Not Given Documented by: Diltiazem HCl 100 mg/ Sodium (Chloride) 100 mls @ 10 mls/hr IV TITRATE [facility]A; Protocol Last Titration: 02/07/21 08:14 Dose: 10 mg/hr, 10 mls/hr Documented by: Insulin Human Lispro (Insulin Lispro 100 Unit/Ml) 0 unit SUBCUT QIDACANDBED [facility]; Protocol Last Admin: 02/07/21 14:18 Dose: Not Given Documented by: Multivitamins/Minerals/Vitamin C (Multivitamin Tab) 1 tab PO DAILY [facility] Dulaglutide [ Trulicity] 0.75 Mg/0 .5 Ml Pen.Injctr Patient's Own Med 0 each SUBCUT Mo@0900 [facility] Pravastatin Sodium (Pravastatin 20 Mg Tab) 40 mg PO BEDTIME [facility] Sodium Chloride (Sodium Chloride 0.9% 10 Ml Syringe) 10 ml FLUSH ASDIRECTED PRN PRN Reason: Keep Vein Open Last Admin: 02/07/21 07:36 Dose: 10 ml Documented by: Zolpidem Tartrate (Zolpidem 10 Mg Tab) 10 mg PO BEDTIME PRN PRN Reason: Insomnia Discontinued Medications Apixaban (Apixaban 5 Mg Tab) 5 mg PO ONETIME ONE Stop: 02/07/21 08:46 Last Admin: 02/07/21 08:57 Dose: 5 mg Documented by: Carvedilol (Carvedilol 3.125 Mg Tab) 3.125 mg PO ONETIME ONE Stop: 02/07/21 12:16 Last Admin: 02/07/21 12:31 Dose: 3.125 mg Documented by: Diltiazem HCl (Diltiazem 50 Mg/10 Ml Sdv) 10 mg IVPUSH ONETIME ONE Stop: 02/07/21 07:06 Last Admin: 02/07/21 07:31 Dose: 10 mg Documented by: Sodium Chloride (Normal Saline) 1,000 mls @ 1,000 mls/hr IV ONETIME ONE Stop: 02/07/21 08:46 Last Admin: 02/07/21 07:53 Dose: 1,000 mls/hr Documented by: Sodium Chloride (Normal Saline) Confirm Administered Dose 1,000 mls @ as directed .ROUTE .STK-MED ONE Stop: 02/07/21 07:50 Last Admin: 02/07/21 07:54 Dose: Not Given Documented by: Magnesium Sulfate 2 gm/ Premix 50 mls @ 25 mls/hr IV ONETIME ONE Stop: 02/07/21 12:59 Last Admin: 02/07/21 12:03 Dose: 25 mls/hr Documented by: - Exam Quality Assessment: Denies: Supplemental Oxygen General: Reports: Alert, Oriented HEENT: Reports: Pupils Equal, Mucous Membr. Moist/[place] Neck: Reports: Supple Lungs: Reports: Clear to Auscultation, Normal Respiratory Effort Cardiovascular: Reports: Regular Rate, Regular Rhythm GI/Abdominal Exam: Normal Bowel Sounds, Soft, Non-Tender, No Organomegaly, No Distention, No Abnormal Bruit Back Exam: Reports: Normal Inspection, Full Range of Motion Extremities: Normal Inspection, Normal Range of Motion, Non-Tender, No Pedal Edema, Normal Capillary Refill Skin: Reports: Warm, Dry, Intact Psy/Mental Status: Reports: Alert, Normal Affect, Normal Mood
[2021-02-07] MEDS ORDERED: Apixaban 5 MG Tab PO SCH (21:00)
[2021-02-07] MEDS ORDERED: Zolpidem 10 MG Tab PO PRN (21:00)
[2021-02-07] MEDS ORDERED: Pravastatin 20 MG Tab PO SCH (21:00)
[2021-02-08] MEDS ORDERED: Multivitamin Tab PO SCH (09:00)
[2021-02-08] MEDS ORDERED: Aspirin 81 MG Tab.EC PO SCH (09:00)
--- NOTE | 2021-02-11 18:59 | PCM.EKG ---
#1 Interpretation EKG Date: 02/07/21 Time: 13:07 Rhythm: NSR Rate (Beats/Min): 68 [place]: Normal P-Wave: Present QRS: RBBB ST-T: Normal QT: Normal Comparison: Change From Previous EKG
== END 2021-02-07 20:10 | disposition home or self-care (01) | DRG 310 ==
LOC: JD.ED 06:52 → JD.ICU 09:12
PROVIDERS: ADMIT Family Medicine; ATTEND Family Medicine
DX: I48.91 Unspecified atrial fibrillation (principal); I25.10 Atherosclerotic heart disease of native coronary artery without angina pectoris; E11.9 Type 2 diabetes mellitus without complications; H54.7 Unspecified visual loss; G47.30 Sleep apnea, unspecified; M10.9 Gout, unspecified; M19.90 Unspecified osteoarthritis, unspecified site; Z96.649 Presence of unspecified artificial hip joint; Z20.822 Contact with and (suspected) exposure to COVID-19; I25.2 Old myocardial infarction; Z95.5 Presence of coronary angioplasty implant and graft; Z79.82 Long term (current) use of aspirin; Z79.01 Long term (current) use of anticoagulants; Z79.84 Long term (current) use of oral hypoglycemic drugs; Z88.0 Allergy status to penicillin; Z88.8 Allergy status to other drugs, medicaments and biological substances; Z87.442 Personal history of urinary calculi; Z90.89 Acquired absence of other organs
CPT/HCPCS: 36415; 71045; 71045-26; 80053; 82962; 83735; 84443; 84484; 85025; 93005; 93010; 96365; 96366; 99235; 99285; 99285-25; A9270-GY; J3475; J3490; J7030; U0002

== ENCOUNTER 2025-07-29 06:45 | Day surgery (SDC) | payer BC ==
[~2025-07-29 06:45] MED LIST: Sodium Chloride 0.9% 10 ML Syringe FLUSH PRN; Sodium Chloride 0.9% 10 ML Syringe FLUSH SCH
[2025-07-29] MEDS: Lactated Ringers 1,000 ML IV SCH (07:00)
[2025-07-29] MEDS: oxyCODONE ER 10 MG TAB.ER PO SCH (07:13)
[2025-07-29] MEDS ORDERED: fentaNYL 100 MCG/2 ML SDV IVPUSH PRN (07:31)
[2025-07-29] MEDS ORDERED: Ondansetron 4 MG/2 ML SDV IVPUSH PRN (07:31)
[2025-07-29] MEDS ORDERED: propofoL 500 MG/50 ML 50 ML ONE ×2 (08:09→08:50)
[2025-07-29] MEDS ORDERED: Ketorolac 30 MG/ML SDV ONE (08:09)
[2025-07-29] MEDS ORDERED: dexmedeTOMIDine HCl 200 MCG/2 ML SDV ONE (08:09)
[2025-07-29] MEDS ORDERED: fentaNYL 100 MCG/2 ML SDV ONE (08:09)
[2025-07-29] MEDS ORDERED: Dexamethasone 4 MG/ML 5 ML MDV ONE (08:09)
[2025-07-29] MEDS ORDERED: Ketamine HCL/NACL, ISO-OSM 50 MG/5 ML Syringe ONE (08:09)
[2025-07-29] MEDS ORDERED: Midazolam 1 MG/ML 2 ML SDV ONE (08:09)
[2025-07-29] MEDS ORDERED: Glycopyrrolate 0.2 MG/ML 2 ML SDV ONE (08:09)
[2025-07-29] MEDS ORDERED: Ropivacaine 0.5% 5 MG/ML 30 ML SDV ONE (08:09)
[2025-07-29] MEDS ORDERED: Esmolol 100 MG/10 ML SDV ONE (08:09)
[2025-07-29] MEDS ORDERED: Lactated Ringers 1,000 ML ONE (08:27)
== END 2025-07-29 13:10 | disposition home or self-care (01) ==
LOC: JD.SDS 06:45
PROVIDERS: ATTEND Orthopaedic Surgery
DX: M19.012 Primary osteoarthritis, left shoulder (principal); I11.0 Hypertensive heart disease with heart failure; I50.31 Acute diastolic (congestive) heart failure; E11.9 Type 2 diabetes mellitus without complications; E78.2 Mixed hyperlipidemia; I48.91 Unspecified atrial fibrillation; Z88.8 Allergy status to other drugs, medicaments and biological substances; Z79.4 Long term (current) use of insulin; Z79.82 Long term (current) use of aspirin; Z79.84 Long term (current) use of oral hypoglycemic drugs; Z79.899 Other long term (current) drug therapy; Z87.891 Personal history of nicotine dependence
CPT/HCPCS: 23472; 64415; 76000; 97165; 97535; A9270; C1713; C1769; C1776; J0690; J1100; J1596; J1805; J1885; J2250; J2704; J2795; J3010; J3373; J7120; 01638; J3490

== ENCOUNTER 2025-08-26 06:00 | Day surgery (SDC) | payer BC ==
[2025-08-26] MEDS: Lactated Ringers 1,000 ML IV SCH (06:30)
[2025-08-26] MEDS ORDERED: Midazolam 1 MG/ML 2 ML SDV ONE (06:51)
[2025-08-26] MEDS ORDERED: fentaNYL 100 MCG/2 ML SDV ONE (06:51)
[2025-08-26] MEDS ORDERED: Ropivacaine 0.5% 5 MG/ML 30 ML SDV ONE (06:51)
[2025-08-26] MEDS ORDERED: Propofol 200 MG/20 ML SDV ONE (07:17)
[2025-08-27] MEDS ORDERED: Sodium Chloride 0.9% 10 ML Syringe FLUSH SCH (00:01)
[2025-08-27] MEDS ORDERED: Lactated Ringers 1,000 ML IV SCH (00:01)
[2025-08-27] MEDS ORDERED: Sodium Chloride 0.9% 10 ML Syringe FLUSH PRN (00:01)
== END 2025-08-26 09:43 | disposition home or self-care (01) ==
LOC: JD.SDS 06:00
PROVIDERS: ATTEND Orthopaedic Surgery
DX: M65.331 Trigger finger, right middle finger (principal); I10 Essential (primary) hypertension; E11.9 Type 2 diabetes mellitus without complications; I25.10 Atherosclerotic heart disease of native coronary artery without angina pectoris; I48.91 Unspecified atrial fibrillation; Z88.8 Allergy status to other drugs, medicaments and biological substances; Z79.84 Long term (current) use of oral hypoglycemic drugs; Z79.82 Long term (current) use of aspirin; Z79.899 Other long term (current) drug therapy; Z87.891 Personal history of nicotine dependence
CPT/HCPCS: 26055; 64450; J0665; J0690; J2003; J2250; J2704; J2795; J3010; J7120; 01810